=== PATIENT | female | born 1990 | race Caucasian/White ===

== ENCOUNTER → 2017-03-01 | Outpatient (CLI) | payer MEDICAID ==
[~2017-03-01] MED LIST: CEPH500C PO; CODE-54 PO; CPH250CIP PO; CPR250T PO; CPR500T PO; CYCL10TA9 PO; DCS100C PO; FAMO40TA6 PO; FERR-57 PO; FERR240T9 PO; FRS325T PO; Hydrocodone Bit/Acetaminophen PO; IBP600T1 PO; METR500T PO; NAPR-243 PO; NITR100C3 PO; OMEP40CA36 PO; ONDAN4ODT PO; PNV11TAB PO; PREN-102 PO; PREN-115 PO; PREN1TAB19 PO; SCR1T1 PO; SULF1TAB38 PO; TRAM100T PO; TRM50T PO; ibu 600 PO
--- NOTE | 2017-03-01 16:24 | Diagnostic Imaging Report ---
INDICATION: Abnormal uterine bleeding. History of intrauterine contraceptive device placement. TECHNIQUE: Multiple real-time grayscale sonographic images were obtained of the pelvis transabdominally and endovaginally. CORRELATION STUDY: None. FINDINGS: UTERUS/ENDOMETRIUM: Uterus measures 7.1 x 4.9 x 4.3 cm. Uterus is slightly retroflexed. An intrauterine contraceptive device is present and appears to be in the lower uterine segment near the level of the cervix. The endometrium is somewhat obscured by the contraceptive device but appears to be within normal limits at 3 mm. RIGHT OVARY: 4.0 x 2.3 x 2.8 cm. LEFT OVARY: 4.2 x 2.2 x 3.1 cm. Hypoechoic area in the left ovary compatible with a cyst at 16 mm in size. Vascular flow is demonstrated to both ovaries. No significant free pelvic fluid. IMPRESSION: 1. Intrauterine contraceptive device is present and appears to be slightly lower in the uterine segment near the level of the cervix. 2. Left ovarian cyst likely physiologic. Dictated by: Dictated on workstation # [id number]
== END ==
LOC: RAD 15:02
PROVIDERS: ATTEND Obstetrics & Gynecology
DX: N93.9 Abnormal uterine and vaginal bleeding, unspecified (principal); Z97.5 Presence of (intrauterine) contraceptive device
CPT/HCPCS: 76830; 76856

== ENCOUNTER → 2018-03-18 | Outpatient (CLI) | payer MEDICAID ==
--- NOTE | 2018-03-18 12:59 | Diagnostic Imaging Report ---
PROCEDURE: US abdomen complete. TECHNIQUE: Multiple real-time grayscale images were obtained over the abdomen in various projections. INDICATION: Abdominal pain The previous gallbladder ultrasound exam of 01/24/2013 noted mild distention of the gallbladder but failed to show any other sign of an acute abnormality. On this study the gallbladder wall is not abnormally thickened measuring 2.7 MM (normal 3 mm or less). There is no sign of cholelithiasis and there is no pericholecystic fluid to indicate acute cholecystitis. The common bile duct is not dilated measuring 5.2 MM. The liver does not appear to be enlarged. There is no focal mass involving the liver and the bili tree is not abnormally dilated. Spectral color flow imaging of the portal vein shows the vein is patent. The spleen is prominent but not enlarged. The spleen measures 9.9 x 6.7 x 6.9 CM. There is no focal abnormality involving the spleen. Both kidneys were identified and were within normal limits. The inferior vena cava is also unremarkable. The tail of the pancreas and the aorta were obscured by bowel gas. IMPRESSION: 1. There is no acute abnormality of the abdomen. 2. If clinical concern regarding an acute abnormality of the gallbladder persists and further imaging is desired, then a nuclear medicine hepatobiliary scan, would be recommended for further study. Dictated by: Dictated on workstation # [id number]
== END ==
LOC: RAD 08:29
PROVIDERS: ATTEND Nurse Practitioner Family
DX: R10.10 Upper abdominal pain, unspecified (principal)
CPT/HCPCS: 76700

== ENCOUNTER → 2018-05-30 | Outpatient (CLI) | payer MEDICAID ==
--- NOTE | 2018-05-30 14:04 | Diagnostic Imaging Report ---
INDICATION: Size and dates. TECHNIQUE: Multiple real-time grayscale images were obtained over the gravid uterus. COMPARISON: None. FINDINGS: Christopher gestation is in breech position. The placenta is fundal with no abruption or previa. Anatomical survey was normal. The biometrical measurements correlate with an average age 20 weeks 0 days for sonographic date of confinement of 10/17/2018. Biometrical measurements are as follows: Biparietal 4.7 cm, age 20 weeks 1 days. Head circumference 17.3 cm, age 19 weeks 6 days. Abdominal circumference 14.3 cm, age 19 weeks 5 days. Femur length 3.3 cm, age 20 weeks 2 days. Sonographic estimate age: 20 weeks 0 days. Sonographic estimated date of delivery: 10/17/18. Estimated Weight: 322 gm (+/- 47 gm). LMP percentile: 41%. heart rate: 160 beats per minute. number: 1 of 1. IMPRESSION: Currently breech positioning of 20 weeks 0 days christopher viable IUP with no pathological finding demonstrated. Dictated by: Dictated on workstation # [id number]
== END ==
LOC: RAD 09:54
PROVIDERS: ATTEND Obstetrics & Gynecology
DX: Z34.92 Encounter for supervision of normal pregnancy, unspecified, second trimester (principal); Z3A.20 20 weeks gestation of pregnancy
CPT/HCPCS: 76805

== ENCOUNTER 2018-08-05 11:28 | Outpatient (CLI) | payer MEDICAID ==
[~2018-08-05] VITALS: Ht 165.1 cm; Wt 81.8 kg
[2018-08-05 11:54] VITALS: BP 110/56
[2018-08-05 12:11] LABS: BILIRUBIN,URINE NEGATIVE (NEGATIVE); CLARITY,URINE CLEAR; COLOR,URINE YELLOW; GLUCOSE, URINE (UA) NEGATIVE (NEGATIVE); KETONES,URINE NEGATIVE (NEGATIVE); LEUKOCYTE ESTERASE ,URINE 3+ (NEGATIVE); NITRITE,URINE NEGATIVE (NEGATIVE); PH,URINE 7 (5-9); PROTEIN,URINE NEGATIVE (NEGATIVE); UROBILINOGEN,URINE NORMAL (NORMAL)
[2018-08-05] MEDS ORDERED: FLU QUADRIvalent (5+ YOA) 2018-2019 (AFLURIA) 0.5 ML IM ONE (12:15)
[2018-08-05 12:21] LABS: BACTERIA,URINE MODERATE /HPF; SQUAMOUS EPITHELIAL CELL,UR >50 /HPF; WBC,URINE 25-50 /HPF
[2018-08-05] MEDS ORDERED: CEPHALEXIN 250 MG (KEFLEX) CAP PO NR (13:00)
[2018-08-05] MEDS ORDERED: CEPH250C PO (13:04)
--- NOTE | 2018-08-05 13:05 | Discharge Inst-Women's Service ---
Discharge Inst-Women's Serv Depart Medication/Instructions New, Converted or Re-Newed RX: RX on Chart Final Diagnosis urinary tract infection 28 week Consults/Follow Up Additional Follow Up: Yes (as scheduled) Activity Activity: Activity as Tolerated Driving Instructions: You May Drive NO SMOKING: NO SMOKING Nothing Inside Vagina: No Douching, No [place], No Tampons Diet Discharge Diet: No Restrictions Symptoms to Report to : Bleeding Excessive, Pain Increased, Fever Over 101 Degrees F, Vaginal Bleeding Increase, Vaginal Discharge Foul For Any Problems or Questions: Contact Your Physician JADYN ALMANZAR DO Aug 05, 2018 13:05
--- NOTE | 2018-08-07 12:17 | Physician Query-Final Dx ---
AGNIESZKA NGUYỄN 08/07/18 1217: Clinic Account Progress/Dx Physician Query: Please give diagnosis Please provide diagnosis and weeks of gestation. Date of Service Aug 05, 2018 at 11:28 JADYN ALMANZAR DO 08/20/18 1326: Clinic Account Progress/Dx DIAGNOSIS: Diagnosis: (1) Vaginal pain (2) 29 weeks gestation of Diagnosis see above AGNIESZKA NGUYỄN Aug 07, 2018 12:17 JADYN ALMANZAR DO Aug 20, 2018 13:26
== END 2018-08-05 13:28 | disposition home or self-care (01) ==
LOC: WSo 11:28 → LDRP 11:30 → WSo 13:28
PROVIDERS: ATTEND Obstetrics & Gynecology
DX: O99.89 Other specified diseases and conditions complicating pregnancy, childbirth and the puerperium (principal); R10.2 Pelvic and perineal pain; Z3A.29 29 weeks gestation of pregnancy
CPT/HCPCS: 81000; 87088; 99212

== ENCOUNTER 2018-10-03 08:27 | Outpatient (CLI) | payer MEDICAID ==
[~2018-10-03] VITALS: Ht 165.1 cm; Wt 86.3 kg
[~2018-10-03 08:27] MED LIST changes: +CEPH250C PO
[2018-10-03 09:00] VITALS: BP 120/64
[2018-10-03 09:14] LABS: BILIRUBIN,URINE NEGATIVE (NEGATIVE); CLARITY,URINE CLEAR; COLOR,URINE YELLOW; GLUCOSE, URINE (UA) NEGATIVE (NEGATIVE); KETONES,URINE NEGATIVE (NEGATIVE); LEUKOCYTE ESTERASE ,URINE 2+ (NEGATIVE); NITRITE,URINE NEGATIVE (NEGATIVE); PH,URINE 7 (5-9); PROTEIN,URINE NEGATIVE (NEGATIVE); UROBILINOGEN,URINE 1 MG/DL (NORMAL)
[2018-10-03 09:35] LABS: BACTERIA,URINE TRACE /HPF
[2018-10-03] MEDS ORDERED: FLU QUADRIvalent (5+ YOA) 2018-2019 (AFLURIA) 0.5 ML IM ONE (11:00)
--- NOTE | 2018-10-06 16:31 | Physician Query-Final Dx ---
AGNIESZKA NGUYỄN 10/06/18 1631: Clinic Account Progress/Dx Physician Query: Please give diagnosis Date of Service Oct 03, 2018 at 08:27 ALEXANDRA NAYAK MD 10/07/18 0744: Clinic Account Progress/Dx DIAGNOSIS: Diagnosis 38 week false labor AGNIESZKA NGUYỄN Oct 06, 2018 16:31 ALEXANDRA NAYAK MD Oct 07, 2018 07:44
== END 2018-10-03 10:45 | disposition home or self-care (01) ==
LOC: WSo 08:27 → LDRP 08:28 → WSo 10:45
PROVIDERS: ATTEND Obstetrics & Gynecology
DX: O47.1 False labor at or after 37 completed weeks of gestation (principal); Z3A.38 38 weeks gestation of pregnancy
CPT/HCPCS: 81000; 87088; 99213

== ENCOUNTER 2018-10-06 20:16 | Outpatient (CLI) | payer MEDICAID ==
[~2018-10-06] VITALS: Ht 165.1 cm; Wt 88.0 kg
[2018-10-06 20:39] VITALS: BP 109/54
== END 2018-10-06 21:05 | disposition home or self-care (01) ==
LOC: LDRP 20:16 → WSo 20:16
PROVIDERS: ATTEND Obstetrics & Gynecology
DX: O99.89 Other specified diseases and conditions complicating pregnancy, childbirth and the puerperium (principal); M54.5 Low back pain; Z3A.38 38 weeks gestation of pregnancy

== ENCOUNTER 2018-10-10 08:00 | Inpatient (IN) | payer MEDICAID ==
[2018-10-10] VITALS (67 sets, daily range): BP systolic 89–175; BP diastolic 46–83
[~2018-10-10] VITALS: Ht 165.1 cm; Wt 86.2 kg
--- OUTSIDE RECORDS SUMMARY | 2018-10-10 08:06 | XMS REPORT ---
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 367656033 ALLERGIES No Information ENCOUNTERS Encounter Location Date Diagnosis [facility] [id number] [place] [address]01- 0[address] March, [facility] [address] [address] March, HDL deficiency E78.6 [facility] [id number] [place] [address] 18592- 8198 March, [facility] [id number] [place] [address] 81898- 2466 March, Pain of upper abdomen R10.10 [facility] [id number] [place] [address] 68044- 8346 March, Left lateral knee pain M25.562 and Left medial knee pain M25.562 [facility] [id number] [place] [address]24 -3059 Feb, Acute upper respiratory infection, unspecified J06.9 [facility] [id number] [place] [address] 18599- 9999 Feb, [facility] [id number] [place] [address] 79131- 1961 Feb, [facility] [id number] [place] [address] 7245 Jan, [facility] [address] [id number] [place] [address]- 9726 Jan, [facility] [address] [id number] [place] [address]- 6863 Aug, [facility] [address] [id number] [place] [address]- 4903 Aug, [facility] [place] [facility] [address] [id number] [place] [address]- 4918 Aug, [facility] [address] [id number] [place] [address]- 1437 Aug, [facility] [address] [id number] [place] [address]- 6615 Aug, [facility] [address] [id number] [place] [address]- 1419 Aug, [facility] [address] [id number] [place] [address]- 2395 Jun, [facility] [place] [facility] [address] [id number] [place] [address]- 8972 Jun, [facility] [place] [facility] [address] [id number] [place] [address]- 4006 Jun, [facility] [place] [facility] [address] [id number] [place] [address]- 9185 May, [facility] [place] [facility] [address] [id number] [place] [address]- 9557 Apr, [facility] [place] [facility] [address] [id number] [place] [address]- 5904 Jan, [facility] [place] [facility] [address] [id number] [place] [address] 2543 Jan, [facility] [place] [facility] [address] [id number] [place] [address]- 3964 Jan, [facility] [id number] [address] 7263 Jan, [facility] [id number] [address] 2596 Dec, [facility] [id number] [address] 1546 Dec, [facility] [id number] [address] 0406 Dec, [facility] [id number] [address] 5319 Apr, [facility] [id number] [address] 0976 March, [facility] [id number] [address] 7459 Jan, [facility] [id number] [address]- 6688 Feb, [facility] [id number] [address] 3234 Aug, [facility] [id number] [address] 7549 Oct, IMMUNIZATIONS No Known Immunizations SOCIAL HISTORY Never Assessed REASON FOR VISIT deferred lab PLAN OF CARE VITAL SIGNS MEDICATIONS Unknown Medications RESULTS No Results PROCEDURES No Known procedures INSTRUCTIONS MEDICATIONS ADMINISTERED No Known Medications
--- OUTSIDE RECORDS SUMMARY | 2018-10-10 08:06 | XMS REPORT ---
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 917743544 ALLERGIES No Information ENCOUNTERS Encounter Location Date Diagnosis [facility] [id number] [place] [address] 53318- 9897 March, [facility] [address] [address]- [address] March, HDL deficiency E78.6 [facility] [id number] [place] [address] 58310- 7946 March, [facility] [id number] [place] [address] 44151- 9344 March, Pain of upper abdomen R10.10 [facility] [id number] [place] [address] 82495- 6805 March, Left lateral knee pain M25.562 and Left medial knee pain M25.562 [facility] [id number] [place] [address] 63747 -8755 Feb, Acute upper respiratory infection, unspecified J06.9 [facility] [id number] [place] [address] 00212- 0139 Feb, [facility] [id number] [place] [address] 17977- 3005 Feb, [facility] [id number] [place] [address]- 5494 Jan, [facility] [address] [id number] [place] [address]- 1282 Jan, [facility] [address] [id number] [place] [address]- 3508 Aug, [facility] [address] [id number] [place] [address]- 3594 Aug, [facility] [place] [facility] [address] [id number] [place] [address]- 7837 Aug, [facility] [address] [id number] [place] [address]- 0529 Aug, [facility] [address] [id number] [place] [address]- 8938 Aug, [facility] [address] [id number] [place] [address]- 2204 Aug, [facility] [address] [id number] [place] [address]- 2866 Jun, [facility] [place] [facility] [address] [id number] [place] [address]- 4939 Jun, [facility] [place] [facility] [address] [id number] [place] [address]- 1056 Jun, [facility] [place] [facility] [address] [id number] [place] [address]- 9974 May, [facility] [place] [facility] [address] [id number] [place] [address]- 0243 Apr, [facility] [place] [facility] [address] [id number] [place] [address]- 3420 Jan, [facility] [place] [facility] [address] [id number] [place] [address] 2547 Jan, [facility] [place] [facility] [address] [id number] [place] [address]- 7137 Jan, [facility] [id number] [address]- 6845 Jan, [facility] [address], [place] [address]- 9006 Dec, [facility] [address], [place] [address]- 0746 Dec, [facility] [address], [place] [address]- 6486 Dec, [facility] [address], [place] [address]- 5014 Apr, [facility] [address], [place] [address]- 5006 March, [facility] [address], [place] [address]- 6696 Jan, [facility] [address], [place] [address]- 4465 Feb, [facility] [address], [place] [address]- 7232 Aug, [facility] [id number] [address] [address] Oct, IMMUNIZATIONS No Known Immunizations SOCIAL HISTORY Never Assessed REASON FOR VISIT Ultrasound Results PLAN OF CARE VITAL SIGNS MEDICATIONS Unknown Medications RESULTS No Results PROCEDURES No Known procedures INSTRUCTIONS MEDICATIONS ADMINISTERED No Known Medications
--- OUTSIDE RECORDS SUMMARY | 2018-10-10 08:06 | XMS REPORT ---
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 730420230 ALLERGIES No Known Allergies ENCOUNTERS Encounter Location Date Diagnosis [facility] [id number] [place] [address] 69021- 1099 March, [facility] [address] [address]- 2277 March, HDL deficiency E78.6 [facility] [id number] [place] [address] 29052- 1855 March, [facility] [id number] [place] [address] 52819- 0168 March, Pain of upper abdomen R10.10 [facility] [id number] [place] [address] 32701- 0884 March, Left lateral knee pain M25.562 and Left medial knee pain M25.562 [facility] [id number] [place] [address] 46512 -4654 Feb, Acute upper respiratory infection, unspecified J06.9 [facility] [id number] [place] [address] 64640- 5610 Feb, [facility] [id number] [place] [address] 39618- 4716 Feb, [facility] [address] [id number] [place] [address]- 8735 Jan, [facility] [address] [id number] [place] [address]- 2666 Jan, [facility] [address] [id number] [place] [address]- 3658 Aug, [facility] [address] [id number] [place] [address]- 0670 Aug, [facility] [address] [id number] [place] [address]- 9591 Aug, [facility] [address] [id number] [place] [address]- 3145 Aug, [facility] [address] [id number] [place] [address]- 6135 Aug, [facility] [address] [id number] [place] [address]- 4986 Aug, [facility] [address] [id number] [place] [address]- 8695 Jun, [facility] [place] [facility] [address] [id number] [place] [address]- 1414 Jun, [facility] [address] [id number] [place] [address]- 5468 Jun, [facility] [place] [facility] [address] [id number] [place] [address]- 4854 May, [facility] [place] [facility] [address] [id number] [place] [address] 2543 Apr, [facility] [place] [facility] [address] [id number] [place] [address]- 9336 Jan, [facility] [place] [facility] [address] [id number] [place] [address]- 2546 Jan, [facility] [place] [facility] [address] [id number] [place] [address]- 4125 Jan, [facility] [id number] [address]- 9737 Jan, [facility] [address], [place] [address]- 6599 Dec, [facility] [address] 7535 Dec, [facility] [address], [place] [address]- 8713 Dec, [facility] [address] 4642 Apr, [facility] [address] [place] [address] 662102- 4941 March, [facility] [id number] 5165 Jan, [facility] [address], [place] [address]- 3233 Feb, [facility] [address], [place] [address]- 9679 Aug, [facility] [address], [place] [address]- 9434 Oct, IMMUNIZATIONS No Known Immunizations SOCIAL HISTORY Never Assessed REASON FOR VISIT Stomach ache- mo salguero, patient says she has gallbladder issues, painful after eating in stomach PLAN OF CARE Activity Details Follow Up 4 Weeks, prn Reason:pending labs and US results Future/Pending Procedure ROUTINE VENIPUNCTURE VITAL SIGNS Height 64 in 2018-03-07 Weight 170 lbs 2018-03-07 Temperature 98.4 degrees Fahrenheit 2018-03-07 Heart Rate 74 bpm 2018-03-07 Respiratory Rate 20 2018-03-07 BMI 29.18 kg/m2 2018-03-07 Blood pressure systolic 115 mmHg 2018-03-07 Blood pressure diastolic 70 mmHg 2018-03-07 MEDICATIONS Unknown Medications RESULTS No Results PROCEDURES Procedure Date Ordered Result Body Site X-RAY EXAM ABDOMEN 1 VIEW March 07, 2018 Hemoglobin Test Send Out 0 dollar March 07, 2018 VENMALDONADO, ROUTINE* March 07, 2018 LAB NOT BILLED BY [facility] March 07, 2018 INSTRUCTIONS MEDICATIONS ADMINISTERED No Known Medications
--- OUTSIDE RECORDS SUMMARY | 2018-10-10 08:06 | XMS REPORT ---
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 782026624 ALLERGIES No Information ENCOUNTERS Encounter Location Date Diagnosis [facility] [id number] [place] [address] 78172- 0050 March, [facility] [address] [address]- [address]64 March, HDL deficiency E78.6 [facility] [id number] [place] [address] 96586- 5483 March, [facility] [id number] [place] [address] 61721- 7142 March, Pain of upper abdomen R10.10 [facility] [id number] [place] [address] 31097- 5940 March, Left lateral knee pain M25.562 and Left medial knee pain M25.562 [facility] [id number] [place] [address] 86326 -4836 Feb, Acute upper respiratory infection, unspecified J06.9 [facility] [id number] [place] [address] 55264- 8787 Feb, [facility] [id number] [place] [address] 45171- 2562 Feb, [facility] [address] [id number] [place] [address]- 1126 Jan, [facility] [address] [id number] [place] [address]- 4522 Jan, [facility] [address] [id number] [place] [address]- 5799 Aug, [facility] [address] [id number] [place] [address]- 0640 Aug, [facility] [place] [facility] [address] [id number] [place] [address]- 8308 Aug, [facility] [address] [id number] [place] [address]- 5495 Aug, [facility] [address] [id number] [place] [address]- 1194 Aug, [facility] [address] [id number] [place] [address]- 5555 Aug, [facility] [address] [id number] [place] [address]- 2644 Jun, [facility] [place] [facility] [address] [id number] [place] [address]- 0789 Jun, [facility] [place] [facility] [address] [id number] [place] [address]- 6428 Jun, [facility] [place] [facility] [address] [id number] [place] [address]- 0553 May, [facility] [place] [facility] [address] [id number] [place] [address]- 4464 Apr, [facility] [place] [facility] [address] [id number] [place] [address]- 3800 Jan, [facility] [place] [facility] [address] [id number] [place] [address] 2547 Jan, [facility] [place] [facility] [address] [id number] [place] [address]- 9674 Jan, [facility] [address], [place] [address]- 3178 Jan, [facility] [id number] [address] Dec, [facility] [id number] [place] [address] Dec, [facility] [id number] [address] Dec, [facility] [id number] [place] [address] Apr, [facility] [id number] [place] [address] March, [facility] [id number], [place] [address] Jan, [facility] [id number] [place] [address] Feb, [facility] [id number] [place] [address] Aug, [facility] [id number] [address] Oct, IMMUNIZATIONS No Known Immunizations SOCIAL HISTORY Never Assessed REASON FOR VISIT PLAN OF CARE VITAL SIGNS MEDICATIONS Unknown Medications RESULTS No Results PROCEDURES No Known procedures INSTRUCTIONS MEDICATIONS ADMINISTERED No Known Medications
--- OUTSIDE RECORDS SUMMARY | 2018-10-10 08:07 | XMS REPORT ---
Author Author CHESTERRADHA Higginbotham Organization [facility] Address [address] [place] [address] Care Team Providers Care Electrician Elevator Maintenance Name Role Phone RADHA CHESTER Unavailable PROBLEMS Type Condition ICD9-CM Code [id number] Code Onset Dates Condition Status SNOMED Code Problem Abdominal pain, unspecified site 789.00 Active 63121459 Problem examination or test, positive result V72.42 Active 973324885 Problem Dermatophytosis of foot 110.4 Active 3445180 Problem Acute pharyngitis 462 Active 569588936 Problem Costochondritis 733.6 Active 24373989 Problem Cough 786.2 Active 90484580 Problem Unspecified backache 724.5 Active 952120172 Problem Contact dermatitis and other eczema, due to unspecified cause 692.9 Active 09131103 ALLERGIES No Known Allergies SOCIAL HISTORY Never Assessed PLAN OF CARE Activity Details Follow Up 3 Weeks Reason:est care VITAL SIGNS Height 64 in 2017-03-11 Weight 179 lbs 2017-03-11 Temperature 98.3 degrees Fahrenheit 2017-03-11 Heart Rate 80 bpm 2017-03-11 Respiratory Rate 20 2017-03-11 BMI 30.72 kg/m2 2017-03-11 Blood pressure systolic 120 mmHg 2017-03-11 Blood pressure diastolic 78 mmHg 2017-03-11 MEDICATIONS Medication Instructions Dosage Frequency Start Date End Date Duration Status PredniSONE 20 mg Orally Once a day 1 tablet 24h March, March, 05 days Active Ibuprofen 800 MG Orally Three times a day 1 tablet with food or milk 8h March, Apr, 30 day(s) Active Ibuprofen 200 mg Orally 3-4 times a day 3 tablet with food or milk as needed Active RESULTS Name Result Date Reference Range Xray : Knee, Left 3 views (IN HOUSE) 2017-03-11 PROCEDURES Procedure Date Ordered Result Body Site X-RAY EXAM OF KNEE, 3 March 11, 2017 IMMUNIZATIONS No Known Immunizations
[2018-10-10] MEDS ORDERED: D5 LR IV SOLUTION 1,000 ML IV ONE (08:26)
[2018-10-10] MEDS: D5 LR IV SOLUTION 1,000 ML IV SCH ×2 (08:35→16:46)
[2018-10-10] MEDS ORDERED: MINERAL OIL CONCENTRATE 99.9% 15 ML UDC TOP PRN (08:45)
[2018-10-10 08:55] LABS: BASOPHILS % (AUTO) 0 % (0-10); EOSINOPHILS # (AUTO) 0.2 10^3/uL (0.0-0.3); EOSINOPHILS % (AUTO) 3 % (0-10); HEMATOCRIT 33 % (35-52); HEMOGLOBIN 11.2 G/DL (11.5-16.0); LYMPHOCYTES # (AUTO) 1.6 X 10^3 (1.0-4.0); LYMPHOCYTES % (AUTO) 22 % (12-44); MEAN CORPUSCULAR HEMOGLOBIN 30 PG (25-34); MEAN CORPUSCULAR HGB CONC 34 G/DL (32-36); MEAN CORPUSCULAR VOLUME 88 FL (80-99); MEAN PLATELET VOLUME 11.2 FL (7.4-10.4); MONOCYTES # (AUTO) 0.6 X 10^3 (0.0-1.0); MONOCYTES % (AUTO) 8 % (0-12); NEUTROPHILS # (AUTO) 4.6 X 10^3 (1.8-7.8); NEUTROPHILS % (AUTO) 66 % (42-75); PLATELET COUNT 150 10^3/uL (130-400); RED BLOOD COUNT 3.77 10^6/uL (4.35-5.85); RED CELL DISTRIBUTION WIDTH 12.3 % (10.0-14.5)
[2018-10-10] MEDS ORDERED: SUFENTA 0.6MCG/ML BUPIVA 0.125 100 ML ONE (09:35)
[2018-10-10] MEDS ORDERED: fentaNYL INJECTION 100 MCG/2 ML AMP ONE (09:40)
[2018-10-10] MEDS ORDERED: BUPIVACAINE 0.25% 30 ML (SENSORCAINE) VIAL ONE (09:40)
[2018-10-10] MEDS ORDERED: LACTATED RINGERS 1,000 ML IV ONE (10:14)
[2018-10-10] MEDS ORDERED: NALOXONE 0.4 MG/ML 1 ML (NARCAN) VIAL IV PRN (10:15)
[2018-10-10] MEDS ORDERED: ONDANSETRON 4 MG/2 ML (SDV) Z0FRAN IV PRN (10:15)
[2018-10-10] MEDS ORDERED: diphenhydrAMINE 50 MG/ML INJ (BENADRYL) IV PRN (10:15)
[2018-10-10] MEDS ORDERED: FLU QUADRIvalent (5+ YOA) 2018-2019 (AFLURIA) 0.5 ML IM ONE (10:15)
[2018-10-10] MEDS ORDERED: CATHETER FLUSH 10 ML SYR IV PRN (10:15)
[2018-10-10] MEDS ORDERED: OXYTOCIN/NORMAL SALINE 500 ML IV SCH ×2 (11:06→23:12)
[2018-10-10] MEDS ORDERED: CATHETER FLUSH 10 ML SYR IV SCH (14:00)
[2018-10-10] MEDS ORDERED: diphenhydrAMINE 50 MG/ML INJ (BENADRYL) IVP NR (16:45)
[2018-10-10] MEDS: EPIDURAL (SUFENTA 0.6MCG/ML BUPIVA 0.125%) 100 ML BAG EPI SCH ×2 (16:46→18:35)
[2018-10-10] MEDS: PROPRANOLOL 1 MG/ML (INDERAL) INJ IV NR ×2 (17:30→18:09)
[2018-10-10] MEDS ORDERED: PROMETHAZINE INJ 25 MG/ML (PHENERGAN) AMP IVP NR (20:30)
[2018-10-10] MEDS ORDERED: LIDOCAINE/EPI 2% 1:200,00 (XYLOCAINE) 10 ML VIAL ONE (22:38)
--- NOTE | 2018-10-10 23:12 | OB Labor & Delivery Record ---
Vag Delivery Note Vag Delivery Note Date of Delivery: 10/10/18 Preoperative Diagnosis: Angelic Courtney is a 28 /Para 6/4 ,Gestational Age 39 weeks for social induction with advanced cervical dilation Postoperative Diagnosis: Same Surgeon: JADYN ALMANZAR Anesthesia: epidural Delivery Type: spontaneous vaginal Findings: Viable female infant, apgars 9/9, weight pending Lacerations: bilateral periurethral abrasions and perineal abrasion, not repaired. Intact placenta with 3 vessel cord. No nuchal cord, body cord or shoulder dystocia Estimated Blood Loss: 250 ml Complications: None Condition: Stable Description of Procedure: The patient is a 28 /Para 6/4 ,Gestational Age 39 weeks for social induction with advanced cervical dilation. She was admitted and informed consent was obtained. Her labor course was remarkable for epidural placement and then AROM, with augmentation with pitocin. There was cervical swelling that was improved with benedryl and promethazine IV. She progressed to complete dilatation and began to push. She was then set up for delivery. The infant's head was delivered atraumatically in the WILLARD position. The shoulders and remainder of the infant's body were then delivered without difficulty. Upon delivery, the head was held below the level of the perineum and the mouth and nares were bulb suctioned. The cord was doubly clamped and cut and the infant was handed off to the pediatric staff. An intact placenta with 3-vessel cord delivered via Gisela and there was found to be minimal bleeding.~ Vigorous fundal massage was performed and the fundus was found to be firm. IV oxytocin was given. Examination of the vagina and perineum revealed the above lacerations that did not require repair. Following the delivery, sponge, instrument and needle counts were correct. Mom and baby were both in stable condition in the labor suite. Vitals - Labs Vital Signs - I&O Vital Signs Date Time Temp Pulse Resp B/P (MAP) Pulse Ox O2 Delivery O2 Flow Rate FiO2 10/10/18 22:15 67 18 104/58 (73) Room Air 10/10/18 22:00 98.7 66 18 108/59 (75) Room Air 10/10/18 21:45 75 18 106/59 (75) Room Air 10/10/18 21:30 72 18 104/58 (73) Room Air 10/10/18 21:15 65 18 106/49 (68) Room Air 10/10/18 21:00 74 18 118/73 (88) Room Air 10/10/18 20:45 79 18 119/69 (86) Room Air 10/10/18 20:30 84 18 117/75 (89) Room Air 10/10/18 20:15 71 18 132/57 (82) Room Air 10/10/18 20:00 75 18 113/58 (76) Room Air 10/10/18 19:45 81 18 128/59 (82) Room Air 10/10/18 19:30 74 18 120/63 (82) Room Air 10/10/18 19:15 98.2 81 103/62 (76) Room Air 10/10/18 19:00 97.7 75 97/56 (70) Room Air 10/10/18 18:45 72 109/58 (75) Room Air 10/10/18 18:30 78 123/62 (82) Room Air 10/10/18 18:15 99.1 71 16 101/57 (72) Room Air 10/10/18 18:00 69 105/55 (72) Room Air 10/10/18 17:45 70 94/50 (65) Room Air 10/10/18 17:30 62 16 98/52 (67) Room Air 10/10/18 17:15 67 95/55 (68) Room Air 10/10/18 17:00 67 102/53 (69) Room Air 10/10/18 16:45 70 103/53 (70) Room Air 10/10/18 16:30 65 109/56 (73) Room Air 10/10/18 16:15 98.0 69 16 110/57 (74) Room Air 10/10/18 16:00 82 110/63 (79) Room Air 10/10/18 15:45 65 107/57 (74) Room Air 10/10/18 15:30 75 111/57 (75) Room Air 10/10/18 15:15 73 115/58 (77) Room Air 10/10/18 15:00 98.1 66 16 104/55 (71) Room Air 10/10/18 14:45 67 110/59 (76) Room Air 10/10/18 14:30 69 108/59 (75) Room Air 10/10/18 14:15 75 112/53 (72) Room Air 10/10/18 14:00 79 120/58 (78) Room Air 10/10/18 13:45 98.3 68 114/59 (77) Room Air 10/10/18 13:30 68 97/56 (70) Room Air 10/10/18 13:15 65 16 101/56 (71) Room Air 10/10/18 13:00 68 102/50 (67) Room Air 10/10/18 12:45 68 110/56 (74) Room Air 10/10/18 12:30 97.5 92 89/51 (64) Room Air 10/10/18 12:15 71 89/47 (61) Room Air 10/10/18 12:00 72 106/47 (66) Room Air 10/10/18 11:45 97.4 71 16 109/57 (74) Room Air 10/10/18 11:30 80 91/46 (61) Room Air 10/10/18 11:15 68 90/53 (65) Room Air 10/10/18 11:00 77 102/52 (69) Room Air 10/10/18 10:50 82 16 96/55 (69) Room Air 10/10/18 10:45 71 93/51 (65) Room Air 10/10/18 10:40 88 109/53 (71) 99 Room Air 10/10/18 10:35 78 115/55 (75) 99 Room Air 10/10/18 10:30 77 106/53 (70) 98 Room Air 10/10/18 10:25 95 95/51 (66) 97 Room Air 10/10/18 10:20 76 100/54 (69) 98 Room Air 10/10/18 10:17 75 105/56 (72) 98 Room Air 10/10/18 10:15 83 102/51 (68) 98 Room Air 10/10/18 10:14 83 102/51 (68) 98 Room Air 10/10/18 10:11 79 108/55 (72) 97 Room Air 10/10/18 10:08 93 118/58 (78) 99 Room Air 10/10/18 10:05 97 128/58 (81) 99 Room Air 10/10/18 10:00 98.0 98 18 121/65 (83) 100 Room Air 10/10/18 09:00 96.5 88 16 117/68 (84) 98 Room Air Labs Laboratory Tests 10/10/18 08:30: White Blood Count 7.0, Red Blood Count 3.77L, Hemoglobin 11.2L, Hematocrit 33L, Mean Corpuscular Volume 88, Mean Corpuscular Hemoglobin 30, Mean Corpuscular Hemoglobin Concent 34, Red Cell Distribution Width 12.3, Platelet Count 150, Mean Platelet Volume 11.2H, Neutrophils (%) (Auto) 66, Lymphocytes (%) (Auto) 22 , Monocytes (%) (Auto) 8, Eosinophils (%) (Auto) 3, Basophils (%) (Auto) 0, Neutrophils # (Auto) 4.6, Lymphocytes # (Auto) 1.6, Monocytes # (Auto) 0.6, Eosinophils # (Auto) 0.2, Basophils # (Auto) 0.0 JADYN ALMANZAR DO Oct 10, 2018 23:11
[2018-10-10] MEDS ORDERED: BENZOCAINE/MENTHOL (DERMOPLAST) 56 ML CAN TP PRN (23:15)
[2018-10-10] MEDS ORDERED: DIBUCAINE (NUPERCAINAL) 1% OINT 30 GM TOP PRN (23:15)
[2018-10-10] MEDS ORDERED: IBUP-1773 PO (23:15)
[2018-10-10] MEDS ORDERED: ACET-2267 PO (23:15)
[2018-10-10] MEDS ORDERED: TETANUS,DIPTH,PERTUSS P/F (BOOSTRIX) 0.5 ML VIAL IM ONE (23:15)
[2018-10-10] MEDS ORDERED: WITCH HAZEL(TUCKS) 40 EA JAR TOP PRN (23:15)
[2018-10-10] MEDS ORDERED: MEASLES,MUMPS,RUBELLA 1 EA INJ SQ ONE (23:15)
--- NOTE | 2018-10-10 23:16 | Discharge Inst-Women's Service ---
Discharge Inst-Women's Serv Depart Medication/Instructions New, Converted or Re-Newed RX: RX on Chart Final Diagnosis labor vaginal delivery epidural Consults/Follow Up Additional Follow Up: Yes (6 weeks exam) Activity Activity: Activity as Tolerated Driving Instructions: You May Drive NO SMOKING: NO SMOKING Nothing Inside Vagina: No Douching, No [place], No Tampons Diet Discharge Diet: No Restrictions Symptoms to Report to : Bleeding Excessive, Pain Increased, Fever Over 101 Degrees F, Vaginal Bleeding Increase, Cramps in Feet or Legs, Vaginal Discharge Foul For Any Problems or Questions: Contact Your Physician JADYN ALMANZAR DO Oct 10, 2018 23:16
[2018-10-11] VITALS: BP 112/65
[2018-10-11] MEDS: IBUPROFEN 600 MG (MOTRIN) TAB PO SCH ×4 (01:21→20:12)
[2018-10-11 04:00] VITALS: BP 85/43
[2018-10-11] MEDS: ACETAMINOPHEN 500 MG TAB (TYLENOL) PO PRN ×2 (05:33→21:59)
[2018-10-11 05:56] LABS: BASOPHILS % (AUTO) 0 % (0-10); EOSINOPHILS # (AUTO) 0.2 10^3/uL (0.0-0.3); EOSINOPHILS % (AUTO) 2 % (0-10); HEMATOCRIT 29 % (35-52); HEMOGLOBIN 9.9 G/DL (11.5-16.0); LYMPHOCYTES # (AUTO) 1.7 X 10^3 (1.0-4.0); LYMPHOCYTES % (AUTO) 16 % (12-44); MEAN CORPUSCULAR HEMOGLOBIN 30 PG (25-34); MEAN CORPUSCULAR HGB CONC 34 G/DL (32-36); MEAN CORPUSCULAR VOLUME 89 FL (80-99); MEAN PLATELET VOLUME 11.3 FL (7.4-10.4); MONOCYTES # (AUTO) 0.9 X 10^3 (0.0-1.0); MONOCYTES % (AUTO) 8 % (0-12); NEUTROPHILS # (AUTO) 7.7 X 10^3 (1.8-7.8); NEUTROPHILS % (AUTO) 73 % (42-75); PLATELET COUNT 138 10^3/uL (130-400); RED BLOOD COUNT 3.31 10^6/uL (4.35-5.85); RED CELL DISTRIBUTION WIDTH 12.6 % (10.0-14.5); WHITE BLOOD COUNT 10.5 10^3/uL (4.3-11.0)
[2018-10-11] MEDS ORDERED: CATHETER FLUSH 10 ML SYR IV SCH (06:00)
[2018-10-11 08:00] VITALS: BP 99/66
[2018-10-11] MEDS: DOCUSATE SODIUM 100 MG (COLACE) CAP PO SCH ×2 (08:07→20:12)
[2018-10-11] MEDS: PRENATAL VITAMIN 1 EA TAB PO SCH (08:07)
[2018-10-11] MEDS: FERROUS SULF 325 MG (IRON) TAB PO SCH (08:07)
--- NOTE | 2018-10-11 09:24 | Postpartum Progress Note ---
Note Note Day # 1 Subjective: Patient is without complaints. Ambulating, voiding. Tolerating a regular diet without nausea or vomiting. Normal lochia. Pain is well controlled with oral pain medications. Objective: Vital Sign - Last 24 Hours 10/10/18 10/10/18 10/10/18 10/10/18 10:00 10:05 10:08 10:11 Temp 98.0 Pulse 98 97 93 79 Resp 18 B/P (MAP) 121/65 (83) 128/58 (81) 118/58 (78) 108/55 (72) Pulse Ox 100 99 99 97 O2 Delivery Room Air Room Air Room Air Room Air 10/10/18 10/10/18 10/10/18 10/10/18 10:14 10:15 10:17 10:20 Pulse 83 83 75 76 B/P (MAP) 102/51 (68) 102/51 (68) 105/56 (72) 100/54 (69) Pulse Ox 98 98 98 98 O2 Delivery Room Air Room Air Room Air Room Air 10/10/18 10/10/18 10/10/18 10/10/18 10:25 10:30 10:35 10:40 Pulse 95 77 78 88 B/P (MAP) 95/51 (66) 106/53 (70) 115/55 (75) 109/53 (71) Pulse Ox 97 98 99 99 O2 Delivery Room Air Room Air Room Air Room Air 10/10/18 10/10/18 10/10/18 10/10/18 10:45 10:50 11:00 11:15 Pulse 71 82 77 68 Resp 16 B/P (MAP) 93/51 (65) 96/55 (69) 102/52 (69) 90/53 (65) O2 Delivery Room Air Room Air Room Air Room Air 10/10/18 10/10/18 10/10/18 10/10/18 11:30 11:45 12:00 12:15 Temp 97.4 Pulse 80 71 72 71 Resp 16 B/P (MAP) 91/46 (61) 109/57 (74) 106/47 (66) 89/47 (61) O2 Delivery Room Air Room Air Room Air Room Air 10/10/18 10/10/18 10/10/18 10/10/18 12:30 12:45 13:00 13:15 Temp 97.5 Pulse 92 68 68 65 Resp 16 B/P (MAP) 89/51 (64) 110/56 (74) 102/50 (67) 101/56 (71) O2 Delivery Room Air Room Air Room Air Room Air 10/10/18 10/10/18 10/10/18 10/10/18 13:30 13:45 14:00 14:15 Temp 98.3 Pulse 68 68 79 75 B/P (MAP) 97/56 (70) 114/59 (77) 120/58 (78) 112/53 (72) O2 Delivery Room Air Room Air Room Air Room Air 10/10/18 10/10/18 10/10/18 10/10/18 14:30 14:45 15:00 15:15 Temp 98.1 Pulse 69 67 66 73 Resp 16 B/P (MAP) 108/59 (75) 110/59 (76) 104/55 (71) 115/58 (77) O2 Delivery Room Air Room Air Room Air Room Air 10/10/18 10/10/18 10/10/18 10/10/18 15:30 15:45 16:00 16:15 Temp 98.0 Pulse 75 65 82 69 Resp 16 B/P (MAP) 111/57 (75) 107/57 (74) 110/63 (79) 110/57 (74) O2 Delivery Room Air Room Air Room Air Room Air 10/10/18 10/10/18 10/10/18 10/10/18 16:30 16:45 17:00 17:15 Pulse 65 70 67 67 B/P (MAP) 109/56 (73) 103/53 (70) 102/53 (69) 95/55 (68) O2 Delivery Room Air Room Air Room Air Room Air 10/10/18 10/10/18 10/10/18 10/10/18 17:30 17:45 18:00 18:15 Temp 99.1 Pulse 62 70 69 71 Resp 16 16 B/P (MAP) 98/52 (67) 94/50 (65) 105/55 (72) 101/57 (72) O2 Delivery Room Air Room Air Room Air Room Air 10/10/18 10/10/18 10/10/18 10/10/18 18:30 18:45 19:00 19:15 Temp 97.7 98.2 Pulse 78 72 75 81 B/P (MAP) 123/62 (82) 109/58 (75) 97/56 (70) 103/62 (76) O2 Delivery Room Air Room Air Room Air Room Air 10/10/18 10/10/18 10/10/18 10/10/18 19:30 19:45 20:00 20:15 Pulse 74 81 75 71 Resp 18 18 18 18 B/P (MAP) 120/63 (82) 128/59 (82) 113/58 (76) 132/57 (82) O2 Delivery Room Air Room Air Room Air Room Air 10/10/18 10/10/18 10/10/18 10/10/18 20:30 20:45 21:00 21:15 Pulse 84 79 74 65 Resp 18 18 18 18 B/P (MAP) 117/75 (89) 119/69 (86) 118/73 (88) 106/49 (68) O2 Delivery Room Air Room Air Room Air Room Air 10/10/18 10/10/18 10/10/18 10/10/18 21:30 21:45 22:00 22:15 Temp 98.7 Pulse 72 75 66 67 Resp 18 18 18 18 B/P (MAP) 104/58 (73) 106/59 (75) 108/59 (75) 104/58 (73) O2 Delivery Room Air Room Air Room Air Room Air 10/10/18 10/10/18 10/10/18 10/10/18 22:30 22:45 22:58 23:15 Temp 97.8 Pulse 69 79 93 80 Resp 18 18 18 18 B/P (MAP) 111/58 (75) 141/62 (88) 175/83 (113) 116/56 (76) O2 Delivery Room Air Room Air Room Air Room Air 10/10/18 10/10/18 10/11/18 10/11/18 23:30 23:45 00:00 04:00 Temp 97.7 Pulse 66 62 67 66 Resp 18 18 18 18 B/P (MAP) 123/65 (84) 112/59 (76) 112/65 (81) 85/43 (57) O2 Delivery Room Air Room Air Room Air Room Air 10/11/18 08:00 Temp 97.6 Pulse 82 Resp 18 B/P (MAP) 99/66 (77) Pulse Ox 98 O2 Delivery Room Air Intake and Output 10/10/18 10/10/18 10/11/18 15:00 23:00 07:00 Intake Total 1000 ml 1000 ml Balance 1000 ml 1000 ml Physical Exam: General - Alert and oriented, no apparent distress Abdomen - Soft, appropriately tender to palpation, non-distended, fundus firm at umbilicus Extremities - no edema, negative Lawrence's bilaterally Assessment: PPD 1 NVD Acute blood loss anemia Plan: Routine care. Encourage breast feeding. Encourage ambulation. Ferrous sulfate supplementation. Plan for discharge tomorrow Vitals - Labs Vital Signs - I&O Vital Signs Date Time Temp Pulse Resp B/P (MAP) Pulse Ox O2 Delivery O2 Flow Rate FiO2 10/11/18 08:00 97.6 82 18 99/66 (77) 98 Room Air 10/11/18 04:00 97.7 66 18 85/43 (57) Room Air 10/11/18 00:00 67 18 112/65 (81) Room Air 10/10/18 23:45 62 18 112/59 (76) Room Air 10/10/18 23:30 66 18 123/65 (84) Room Air 10/10/18 23:15 97.8 80 18 116/56 (76) Room Air 10/10/18 22:58 93 18 175/83 (113) Room Air 10/10/18 22:45 79 18 141/62 (88) Room Air 10/10/18 22:30 69 18 111/58 (75) Room Air 10/10/18 22:15 67 18 104/58 (73) Room Air 10/10/18 22:00 98.7 66 18 108/59 (75) Room Air 10/10/18 21:45 75 18 106/59 (75) Room Air 10/10/18 21:30 72 18 104/58 (73) Room Air 10/10/18 21:15 65 18 106/49 (68) Room Air 10/10/18 21:00 74 18 118/73 (88) Room Air 10/10/18 20:45 79 18 119/69 (86) Room Air 10/10/18 20:30 84 18 117/75 (89) Room Air 10/10/18 20:15 71 18 132/57 (82) Room Air 10/10/18 20:00 75 18 113/58 (76) Room Air 10/10/18 19:45 81 18 128/59 (82) Room Air 10/10/18 19:30 74 18 120/63 (82) Room Air 10/10/18 19:15 98.2 81 103/62 (76) Room Air 10/10/18 19:00 97.7 75 97/56 (70) Room Air 10/10/18 18:45 72 109/58 (75) Room Air 10/10/18 18:30 78 123/62 (82) Room Air 10/10/18 18:15 99.1 71 16 101/57 (72) Room Air 10/10/18 18:00 69 105/55 (72) Room Air 10/10/18 17:45 70 94/50 (65) Room Air 10/10/18 17:30 62 16 98/52 (67) Room Air 10/10/18 17:15 67 95/55 (68) Room Air 10/10/18 17:00 67 102/53 (69) Room Air 10/10/18 16:45 70 103/53 (70) Room Air 10/10/18 16:30 65 109/56 (73) Room Air 10/10/18 16:15 98.0 69 16 110/57 (74) Room Air 10/10/18 16:00 82 110/63 (79) Room Air 10/10/18 15:45 65 107/57 (74) Room Air 10/10/18 15:30 75 111/57 (75) Room Air 10/10/18 15:15 73 115/58 (77) Room Air 10/10/18 15:00 98.1 66 16 104/55 (71) Room Air 10/10/18 14:45 67 110/59 (76) Room Air 10/10/18 14:30 69 108/59 (75) Room Air 10/10/18 14:15 75 112/53 (72) Room Air 10/10/18 14:00 79 120/58 (78) Room Air 10/10/18 13:45 98.3 68 114/59 (77) Room Air 10/10/18 13:30 68 97/56 (70) Room Air 10/10/18 13:15 65 16 101/56 (71) Room Air 10/10/18 13:00 68 102/50 (67) Room Air 10/10/18 12:45 68 110/56 (74) Room Air 10/10/18 12:30 97.5 92 89/51 (64) Room Air 10/10/18 12:15 71 89/47 (61) Room Air 10/10/18 12:00 72 106/47 (66) Room Air 10/10/18 11:45 97.4 71 16 109/57 (74) Room Air 10/10/18 11:30 80 91/46 (61) Room Air 10/10/18 11:15 68 90/53 (65) Room Air 10/10/18 11:00 77 102/52 (69) Room Air 10/10/18 10:50 82 16 96/55 (69) Room Air 10/10/18 10:45 71 93/51 (65) Room Air 10/10/18 10:40 88 109/53 (71) 99 Room Air 10/10/18 10:35 78 115/55 (75) 99 Room Air 10/10/18 10:30 77 106/53 (70) 98 Room Air 10/10/18 10:25 95 95/51 (66) 97 Room Air 10/10/18 10:20 76 100/54 (69) 98 Room Air 10/10/18 10:17 75 105/56 (72) 98 Room Air 10/10/18 10:15 83 102/51 (68) 98 Room Air 10/10/18 10:14 83 102/51 (68) 98 Room Air 10/10/18 10:11 79 108/55 (72) 97 Room Air 10/10/18 10:08 93 118/58 (78) 99 Room Air 10/10/18 10:05 97 128/58 (81) 99 Room Air 10/10/18 10:00 98.0 98 18 121/65 (83) 100 Room Air I & O 10/11/18 07:00 Intake Total 2000 ml Balance 2000 ml Labs Laboratory Tests 10/11/18 05:49: White Blood Count 10.5, Red Blood Count 3.31L, Hemoglobin 9.9L, Hematocrit 29L, Mean Corpuscular Volume 89, Mean Corpuscular Hemoglobin 30, Mean Corpuscular Hemoglobin Concent 34, Red Cell Distribution Width 12.6, Platelet Count 138, Mean Platelet Volume 11.3H, Neutrophils (%) (Auto) 73, Lymphocytes (%) (Auto) 16 , Monocytes (%) (Auto) 8, Eosinophils (%) (Auto) 2, Basophils (%) (Auto) 0, Neutrophils # (Auto) 7.7, Lymphocytes # (Auto) 1.7, Monocytes # (Auto) 0.9, Eosinophils # (Auto) 0.2, Basophils # (Auto) 0.0 AIDAN HILL DO Oct 11, 2018 09:24
[2018-10-11 12:30] VITALS: BP 109/65
--- NOTE | 2018-10-11 12:51 | Anesthesia-Regional Post-Op ---
Regional Patient Condition Mental Status: Alert, Oriented x3 Circulation: Same as Pre-Op Headache: Absent Sensation: Full Recovery Motor Block: Absent Post Op Complications Complications None Follow Up Care/Instructions Patient Instructions None needed. Anesthesia/Patient Condition Patient is doing well, no complaints, stable vital signs, no apparent adverse anesthesia problems. No complications reported per nursing. D/C home per [facility] Criteria: Yes XIMENA HSIEH CRNA Oct 11, 2018 12:51
[2018-10-11 16:30] VITALS: BP 95/56
[2018-10-11 20:49] VITALS: BP 100/64
[2018-10-12] MEDS: IBUPROFEN 600 MG (MOTRIN) TAB PO SCH ×2 (02:11→09:18)
[2018-10-12 02:15] VITALS: BP 107/77
--- NOTE | 2018-10-12 08:08 | Postpartum Progress Note ---
Note Note Day # 2 Subjective: Patient is without complaints. Ambulating, voiding. Tolerating a regular diet without nausea or vomiting. Normal lochia. Pain is well controlled with oral pain medications. Objective: Vital Signs 10/12/18 02:15 Temp 97.3 Pulse 65 Resp 18 B/P (MAP) 107/77 (87) Pulse Ox 97 O2 Delivery Room Air Physical Exam: General - Alert and oriented, no apparent distress Abdomen - Soft, appropriately tender to palpation, non-distended, fundus firm at umbilicus Extremities - no edema, negative Lawrence's bilaterally Assessment: PPD 1 NVD Acute blood loss anemia Plan: Routine care. Encourage breast feeding. Encourage ambulation. Ferrous sulfate supplementation. Plan for discharge today Vitals - Labs Vital Signs - I&O Vital Signs Date Time Temp Pulse Resp B/P (MAP) Pulse Ox O2 Delivery O2 Flow Rate FiO2 10/12/18 02:15 97.3 65 18 107/77 (87) 97 Room Air 10/11/18 20:49 97.7 74 18 100/64 (76) 97 Room Air 10/11/18 16:30 97.5 69 18 95/56 (69) 97 Room Air 10/11/18 12:30 97.6 69 18 109/65 (80) 98 Room Air AIDAN HILL DO Oct 12, 2018 8:08 am
[2018-10-12 09:00] VITALS: BP 106/61
[2018-10-12] MEDS: FERROUS SULF 325 MG (IRON) TAB PO SCH (09:18)
[2018-10-12] MEDS: DOCUSATE SODIUM 100 MG (COLACE) CAP PO SCH (09:18)
[2018-10-12] MEDS: PRENATAL VITAMIN 1 EA TAB PO SCH (09:18)
[2018-10-12 11:20] VITALS: BP 106/61
== END 2018-10-12 11:20 | disposition home or self-care (01) | DRG 806 ==
LOC: LDRP 08:01
PROVIDERS: ADMIT Obstetrics & Gynecology; ATTEND Obstetrics & Gynecology
PROC: 10E0XZZ Delivery of Products of Conception, External Approach (ICD-10-PCS; principal; 2018-10-10)
PROC: 3E033VJ Introduction of Other Hormone into Peripheral Vein, Percutaneous Approach (ICD-10-PCS; 2018-10-10)
DX: O90.81 Anemia of the puerperium (principal); D62 Acute posthemorrhagic anemia; Z37.0 Single live birth; Z3A.39 39 weeks gestation of pregnancy
CPT/HCPCS: 36415; 85025; 86850; 86900; 86901